=== PATIENT | female | born 1940 | race Caucasian/White ===

== ENCOUNTER 2019-12-04 07:35 | Outpatient (CLI) | payer MEDICARE, OTHER ==
[2019-12-04 14:29] LABS: #Basophils 0.1 thou/uL (0.0-0.2); #Eosinphils 0.1 thou/uL (0.0-0.7); #Lymphocytes 2.7 thou/uL (1.20-3.40); #Monocytes 0.5 thou/uL (0.11-0.59); #Neutrophils 4.2 thou/uL (1.40-6.50); %Eosinophils 1.2 % (0.0-10.0); %Lymphocytes 35.2 % (21.0-51.0); %Monocytes 7.1 % (0.0-10.0); %Neutrophils 55.5 % (42.0-75.0); Hemoglobin 13.7 g/dL (12.0-16.0); Mean Corpuscular HGB CONC 32.4 g/dL (32.0-36.0); Mean Corpuscular Hemoglobin 28.6 pg (27.0-31.0); Mean Corpuscular Volume 88.4 fL (78.0-98.0); Mean Platelet Volume 9.1 fL (7.4-10.4); Platelet Count 203 thou/uL (130-400); White Blood Cell (WBC) Count 7.5 thou/uL (4.8-10.8)
[2019-12-04 14:46] LABS: ALT (SGPT) 17 U/L (8-55); AST (SGOT) 22 U/L (5-34); Albumin 4.6 g/dL (3.4-4.8); Alkaline Phosphatase 83 U/L (40-110); Anion Gap 17 mmol/L (10-20); BUN (Urea Nitrogen) 17 mg/dL (9.8-20.1); Bilirubin, Direct 0.2 mg/dL (0.1-0.3); Bilirubin, Total 0.5 mg/dL (0.2-1.2); Calc. Creatinine Clearance 0 mL/min (70-130); Calcium 9.5 mg/dL (7.8-10.44); Carbon Dioxide 25 mmol/L (23-31); Chloride 104 mmol/L (98-107); Estimated GFR-MDRD 55; Globulin 3.2 g/dL (2.4-3.5); Glucose 112 mg/dL (83-110); Potassium 4.7 mmol/L (3.5-5.1); Protein, Total 7.8 g/dL (6.0-8.3); Sodium 141 mmol/L (136-145)
[2019-12-05 13:02] LABS: SARS-CoV-2 MS2 Positive; SARS-CoV-2 N Gene Negative; SARS-CoV-2 S Gene Negative; SARS-CoV-2 by NAA Not Detected (NotDetected); SARS-CoV-2 orf1ab Negative
== END 2019-12-04 07:36 | disposition home or self-care (01) ==
LOC: LABBT 07:35
PROVIDERS: ATTEND Surgery
DX: Z01.818 Encounter for other preprocedural examination (principal); Z20.828 Contact with and (suspected) exposure to other viral communicable diseases; Z45.1 Encounter for adjustment and management of infusion pump; M96.1 Postlaminectomy syndrome, not elsewhere classified
CPT/HCPCS: 80053; 80076; 85025; U0003; 87635; 93005; 93010

== ENCOUNTER 2019-12-07 10:10 | Day surgery (SDC) | payer MEDICARE ==
[2019-12-05 13:33] VITALS: BMI 37.7
[2019-12-07] MEDS ORDERED: Ondansetron PF 4 MG/2 ML Vial ONE (11:41)
[2019-12-07] MEDS ORDERED: Dexamethasone 20 MG/5 ML VIAL ONE (11:41)
[2019-12-07] MEDS ORDERED: Ketamine 50 MG/ML (10ML VIAL) ONE (12:03)
[2019-12-07] MEDS ORDERED: Midazolam HCl 2 mg/2 ml Vial ONE (12:03)
[2019-12-07] MEDS ORDERED: Propofol 1,000 MG/100 ML VIAL IV ONE (12:03)
[2019-12-07] MEDS ORDERED: Fentanyl 100 MCG/2 ML VIAL ONE (12:03)
[2019-12-07] MEDS ORDERED: Bupivacaine PF 0.5% 30 ML VIAL ONE (12:18)
[2019-12-07] MEDS ORDERED: Lidocaine 1% w/Epinephrine 1:100K 20 ML VIAL ONE (12:18)
--- NOTE | 2019-12-08 07:18 | HP ---
CHIEF COMPLAINT: 1. Chronic postlaminectomy pain. 2. Sacroiliitis. 3. Spinal stenosis. She has had intrathecal pain pump for many years and had been successful. Battery life is now . She needs removal and replacement. PAST MEDICAL HISTORY: Significant for: 1. Pain. 2. Arthritis. 3. Sinus headaches. PAST SURGICAL HISTORY: 1. She has had 4 knee replacements. 2. She has had multiple back surgeries. 3. Ankle surgeries. 4. Her last removal of pain pump was in 2013. 5. She had a hip replacement in 2017. MEDICATIONS: Include: 1. Vitamin D. 2. Lorazepam. 3. Aspirin. 4. Protonix. 5. Potassium. 6. Morphine. 7. Gabapentin. 8. [place]. ALLERGIES: SHE HAS AN ALLERGY TO PENICILLIN. SOCIAL HISTORY: She is . No tobacco or alcohol. PHYSICAL EXAMINATION: GENERAL: Well-developed, well-nourished female, looks comfortable, awake and alert. HEENT: Unremarkable. LUNGS: Clear. HEART: Regular rate and rhythm. ABDOMEN: She has an existing pump on the left lower quadrant of the abdomen. It is protruding. Lower portion has migrated to the superior portion, so there is some angulation of the device. It is nontender. ASSESSMENT: Depleted pain pump. PLAN: Removal and replacement of intrathecal pain pump. Job ID: [id number]
--- NOTE | 2019-12-09 10:48 | OP ---
DATE OF PROCEDURE: 12/07/2019 PREOPERATIVE DIAGNOSIS: Depleted intrathecal pain pump. PROCEDURE PERFORMED: Removal and replacement of implantable programable intrathecal pain pump. INDICATIONS: This is a 79-year-old female, who has had this pain pump for about 14 years for post laminectomy pain. It has not been working recently and the battery life has depleted. FINDINGS: The pump was actually disconnected from the tubing. It had . The pin had pulled out of the tubing and the tubing was buried within the subcutaneous tissue. There was a bunch of jelly around the pump, which was possibly medication that was in the space. There was 25 mL of the Duramorph within the old pump, which was placed into the new pump. DESCRIPTION OF PROCEDURE: After informed consent was obtained, the patient was taken to the operating room and given total IV anesthesia, placed in supine position. Her abdomen was prepped and draped in usual fashion. Local anesthesia with 0.5% Marcaine infiltrated subcutaneously and deep. Transverse incision performed to the old scar. Subcu divided sharply down to the capsule, which included a sock, which encompassed the old pump. This sock was then opened and the sutures removed. There was all this jelly around the pump and when I flipped the pump up, it was disconnected. The tubing end was covered with the capsule. I could see it through a translucent amount of the capsule, opened the capsule carefully with the electrocautery and was able to dissect out the tubing. The tubing connector had split in 2, one half of it was still attached to the pump, the other half was buried in the subcu. The other thing was the pump was oriented upside down, so I went ahead and dissected out the tubing. We attempted to aspirate, could not get any CSF through this tubing, but what we did was we cut the existing tubing, which was the old style of tubing and put a new connector on it. Then, the new pump was primed by removing its fluid and then the old pump was aspirated, a little over 25 mL of drug was removed from the old pump. This was then placed in the new pump. The new pump was then connected to the new connector and then I was able to aspirate through the aspiration port. We got about 1.5 mL of CSF through that port, which we discarded. Two 2-0 Prolene sutures were placed in the superior aspect of the pocket. The pump was inserted. It was tied down with these sutures in its pocket, any of the tubing was posterior. Then, hemostasis was assured. The capsule was closed with interrupted 2-0 Vicryl suture. The skin closed with a running subcuticular 4-0 Rapide. Steri-Strips applied. Sterile bandage applied. The patient tolerated the procedure well, transferred to Recovery in good condition. Sponge and needle count verified correct x2. Job ID: [id number]
--- NOTE | 2019-12-09 16:09 | EKG ---
Test Reason : PREOP Blood Pressure : / mmHG Vent. Rate : 081 BPM Atrial Rate : 081 BPM P-R Int : 144 ms QRS Dur : 090 ms QT Int : 382 ms P-R-T Axes : 030 012 021 degrees QTc Int : 443 ms Normal sinus rhythm Normal ECG No previous ECGs available Confirmed by Marci BAI ([id number]) on 12/09/2019 4:09:04 PM Referred By: SANDY Confirmed By:Marci BAI
== END 2019-12-07 15:15 | disposition home or self-care (01) ==
LOC: SDC 10:10
PROVIDERS: ATTEND Surgery
PROC: 0JPT0VZ Removal of Infusion Pump from Trunk Subcutaneous Tissue and Fascia, Open Approach (ICD-10-PCS; principal; 2019-12-07)
PROC: 0JH80VZ Insertion of Infusion Pump into Abdomen Subcutaneous Tissue and Fascia, Open Approach (ICD-10-PCS; 2019-12-07)
DX: Z45.1 Encounter for adjustment and management of infusion pump (principal); M96.1 Postlaminectomy syndrome, not elsewhere classified; M46.1 Sacroiliitis, not elsewhere classified; M48.00 Spinal stenosis, site unspecified; M19.90 Unspecified osteoarthritis, unspecified site; I10 Essential (primary) hypertension; G89.29 Other chronic pain; M54.9 Dorsalgia, unspecified; F41.9 Anxiety disorder, unspecified; Z79.82 Long term (current) use of aspirin; Z79.899 Other long term (current) drug therapy; Z88.0 Allergy status to penicillin
CPT/HCPCS: 62362; 93005; C1772; 93010; J0690; J1100; J2250; J2405; J2704; J3010; S0020

== ENCOUNTER 2019-12-09 01:10 | Inpatient (IN) | payer MEDICARE, OTHER ==
[2019-12-09] MEDS ORDERED: Metoclopramide HCl 10 MG/2 ML VIAL ONE ×2 (01:19→03:06)
[2019-12-09 02:10] LABS: Bacteria/HPF None Seen HPF (None Seen); Bilirubin Negative (Negative); Blood, Urine 2+ (Negative); Clarity Clear (Clear); Glucose, Urine (Dipstick) Normal (Negative); Ketone, Urine 40 mg/dL (Negative); Leukocyte Negative Leu/uL (Negative); Nitrite Negative (Negative); Protein, Urine (Dipstick) 30 mg/dL (Neg-Trace); RBC/HPF 0-3 HPF (0-3); Specific Gravity, Urine 1.028 (1.002-1.036); Squamous Epithelial 0-3 HPF (0-3); Urobilinogen Normal mg/dL (Less than 2); WBC/HPF 0-3 HPF (0-3); pH, Urine 5.5 (5.0-9.0)
[2019-12-09 02:22] LABS: #Lymphocytes 1.8 thou/uL (1.20-3.40); #Monocytes 0.8 thou/uL (0.11-0.59); #Neutrophils 6.3 thou/uL (1.40-6.50); %Basophils 0.3 % (0.0-1.0); %Eosinophils 0.2 % (0.0-10.0); %Lymphocytes 20.7 % (21.0-51.0); %Monocytes 8.5 % (0.0-10.0); %Neutrophils 70.3 % (42.0-75.0); Hemoglobin 13.3 g/dL (12.0-16.0); Mean Corpuscular HGB CONC 33.7 g/dL (32.0-36.0); Mean Corpuscular Hemoglobin 28.7 pg (27.0-31.0); Mean Corpuscular Volume 85.1 fL (78.0-98.0); Platelet Count 215 thou/uL (130-400); RBC Distribution Width 12.9 % (11.5-14.5); Red Blood Cell (RBC) Count 4.63 mill/uL (4.20-5.40); White Blood Cell (WBC) Count 8.9 thou/uL (4.8-10.8)
[2019-12-09 02:41] LABS: ALT (SGPT) 16 U/L (8-55); AST (SGOT) 30 U/L (5-34); Albumin 4.4 g/dL (3.4-4.8); Alkaline Phosphatase 73 U/L (40-110); Anion Gap 18 mmol/L (10-20); BUN (Urea Nitrogen) 17 mg/dL (9.8-20.1); Bilirubin, Total 0.7 mg/dL (0.2-1.2); Calc. Creatinine Clearance 0 mL/min (70-130); Calcium 9.3 mg/dL (7.8-10.44); Carbon Dioxide 22 mmol/L (23-31); Chloride 101 mmol/L (98-107); Estimated GFR-MDRD 54; Globulin 3.3 g/dL (2.4-3.5); Glucose 169 mg/dL (83-110); Potassium 3.2 mmol/L (3.5-5.1); Protein, Total 7.7 g/dL (6.0-8.3); Sodium 138 mmol/L (136-145)
[2019-12-09 03:08] LABS: CKMB 11.4 ng/mL (0-6.6)
[2019-12-09] MEDS ORDERED: Aspirin 300 MG Suppository ONE (03:12)
[2019-12-09] MEDS ORDERED: hydrALAZINE 20 MG/ML VIAL SLOW IVP PRN (05:35)
[2019-12-09 05:52] LABS: Lactic Acid 2.7 mmol/L (0.5-2.2)
[2019-12-09 06:03] LABS: Troponin I 0.695 ng/mL (< 0.028)
[2019-12-09] MEDS ORDERED: hydrALAZINE 20 MG/ML VIAL ONE (06:11)
[2019-12-09] MEDS ORDERED: Lorazepam 2 MG/ML VIAL SLOW IVP SCH (06:20)
[2019-12-09] MEDS ORDERED: Lorazepam 2 MG/ML VIAL ONE (06:21)
[2019-12-09] MEDS: hydrALAZINE 20 MG/ML VIAL SLOW IVP PRN ×3 (06:21→17:05)
[2019-12-09] MEDS: Sodium Chloride 0.9% 1,000 ML IV SCH ×2 (06:38→17:07)
[2019-12-09] MEDS ORDERED: Promethazine HCl 25 MG/ML VIAL ONE (06:45)
--- NOTE | 2019-12-09 07:50 | HP ---
REASON FOR ADMISSION: Confusion. HISTORY OF PRESENT ILLNESS: This is a 79-year-old female patient, who recently had her pain pump removed and a new one inserted since the old one was depleted. She is known to have post LAMI syndrome. The procedure was done a couple of days ago by Dr. Arnold Meade. Patient presents to the ER tonight with change in mental status. There was some mention of fever at home, but patient here is afebrile. Patient was vomiting in the emergency room and her blood work did reveal elevated troponin and CK-MB. She was given a dose of rectal aspirin and started on IV fluids. She did undergo CT of the abdomen and pelvis that did not show any abnormality as per the ER physician. I attempted to call her contact information, but I did not get any response. I did leave a voice message. In the ER when I saw the patient, she appears to be confused. She did not appear in distress. PAST MEDICAL HISTORY: As per records: 1. Post 4 knee replacements. 2. Multiple back surgeries. 3. Ankle surgery. 4. Removal of the pain pump twice in 2013 and recently a couple of days ago. 5. Hip replacement in 2017. 6. Arthritis. 7. Sinus headache. 8. Sacroiliitis. 9. Spinal stenosis. 10. Chronic postlaminectomy pain. ALLERGIES: TO PENICILLIN. SOCIAL HISTORY: As per records, does not smoke and does not drink alcohol. REVIEW OF SYSTEMS: Unable to obtain due to her confusion. PHYSICAL EXAMINATION: GENERAL: She is awake, but confused. VITAL SIGNS: Her blood pressure is 170/95, heart rate of 85, temperature is 99 degrees, and saturating 99% on room air. HEENT: Head is nontraumatic and normocephalic. Pupils equal, reactive. Extraocular movements are intact. Nonicteric sclerae. Well-injected conjunctivae. Oral mucosa normal. Nasal mucosa normal. NECK: Supple. No adenopathy. No murmur. Thyroid is not palpable. Trachea midline. No supraclavicular adenopathy. HEART: S1, S2 regular. No murmur. No gallop. No friction rubs. No displacement of the PMI. LUNGS: Clear to auscultation. Poor inspiratory effort. Bowel sounds are positive. ABDOMEN: Soft. She does have 1+ pitting edema in bilateral lower extremities. NEUROLOGIC: She is moving all of her four extremities. Unable to fully assess her neurologically. She is confused. LABORATORY DATA: Blood work shows WBC of 8.9, hemoglobin 13.3, and platelets of 215. Sodium 138, potassium of 3.2, bicarb 22, and creatinine 0.99. CK-MB 11.4 and troponin 0.251. Urinalysis does not show any evidence of infection. Does show ketones. EKG shows normal sinus rhythm with PVC. No ST-segment or T-wave changes. ASSESSMENT AND PLAN: This is a 79-year-old female patient presenting with confusion, unknown baseline, but appears to be agitated. Recently, she had a pain pump replaced, so this could be related to that. Also, she ruled in by cardiac enzymes. Patient will be admitted to telemetry and will continue cycling cardiac enzymes. We will provide her with blood pressure control. We will ask Cardiology to see her. She did receive a dose of aspirin in the emergency room, so we will continue with that. Renal system, electrolytes. Patient will be hydrated and we will recheck her electrolytes, replace appropriately. In regard to her pain pump, I did place a consult for Anesthesia to see if they can help. Otherwise, we will leave a message for the day team to possibly contact the surgeon, who inserted the pain pump. I am unable to determine her code status since her lithography contact worker did not come back yet. We will have her full code. Job ID: [id number]
[2019-12-09] MEDS ORDERED: Ondansetron PF 4 MG/2 ML Vial IVP PRN ×2 (08:24→18:34)
[2019-12-09] MEDS ORDERED: Ondansetron ODT 4 MG TAB PO PRN (08:24)
[2019-12-09] MEDS ORDERED: Enoxaparin Sodium 40 MG/0.4 ML SYRINGE SC SCH (09:00)
[2019-12-09] MEDS ORDERED: Haloperidol Lactate 5 MG/ML VIAL IM PRN (09:03)
--- NOTE | 2019-12-09 09:11 | PDOC.BPN ---
- Brief Progress Note Encounter Date: 12/09/19 Encounter Time: 09:00 Inherited the patient this morning. On encounter, agitated, mumbles, dark vomitus on shirt and in mouth. #hypertensive emergency #demand ischemia BP on encounter 160s/90s, slightly below goal pending cardiology evaluation hydralazine and labetalol PRN trend trop #low grade fever -WBC wnl, UA -ve, CXR no acute pulmonry process; blood Cx pending -considering fever, may be aspiration pneumonitis -Pain pump incision site c/d/i -procalcitonin -continue to follow #UGIB -started pantoprazole; H&H q8h -if continues to be confused and vomits, may require intubation assuming remains full code (will attempt to reach family); defer to PCCM #agitation #confusion hypertensive encephalopathy vs infectious etiology vs medication induced (opioids, lorazepam) vs ACS pending CT head report on repeat encounter (10:30am), awake, alert, speaks with son (improved) started low dose haldol; Full code pending discussion with family
[2019-12-09] MEDS ORDERED: Potassium Chloride 40 MEQ in Premix Bag 1 BAG IVPB SCH (09:15)
[2019-12-09] MEDS ORDERED: Electrolyte Replacement Protoc 1 EACH EACH FS SCH (09:15)
[2019-12-09] MEDS ORDERED: Pantoprazole 40 MG VIAL IVP SCH (09:15)
[2019-12-09 09:34] VITALS: BMI 38.4
--- NOTE | 2019-12-09 09:37 | RAD ---
PORTABLE CHEST: HISTORY: Fever. FINDINGS: Cardiomegaly and mild vascular engorgement. No consolidation or significant effusion apparent. POS: AGW
[2019-12-09] MEDS: Potassium Chloride 20 MEQ in Premix Bag 1 BAG IVPB SCH ×2 (10:18→10:20)
[2019-12-09 10:49] LABS: Anion Gap 20 mmol/L (10-20); BUN (Urea Nitrogen) 11 mg/dL (9.8-20.1); Calc. Creatinine Clearance 83 mL/min (70-130); Calcium 8.9 mg/dL (7.8-10.44); Carbon Dioxide 20 mmol/L (23-31); Chloride 100 mmol/L (98-107); Estimated GFR-MDRD 62; Glucose 136 mg/dL (83-110); Sodium 137 mmol/L (136-145)
[2019-12-09 10:51] LABS: Potassium 2.8 mmol/L (3.5-5.1)
--- NOTE | 2019-12-09 11:11 | CT ---
PRELIMINARY REPORT/[facility]/AFTER HOURS PROCEDURE EXAM: CT Head Without Intravenous Contrast. CLINICAL HISTORY: AMS TECHNIQUE: Axial computed tomography images of the head/brain without intravenous contrast. COMPARISON: None provided. FINDINGS: BRAIN: No acute intraparenchymal hemorrhage. No CT evidence for acute territorial infarct. No midline shift or extra-axial collection. Confluent bilateral subcortical and periventricular hypoattenuation with areas of sparing noted within the centrum semiovale. VENTRICLES: No hydrocephalus. ORBITS: Status post bilateral cataract surgery. SINUSES AND MASTOIDS: Mucosal thickening of the posterior ethmoid air cells. The mastoid air cells are clear. SOFT TISSUES: No significant facial or scalp soft tissue swelling evident. No radiopaque foreign body is seen. BONES: No acute skull fracture. IMPRESSION: Confluent bilateral subcortical and periventricular hypoattenuation with areas of sparing noted withi n the centrum semiovale. While this may reflect chronic microvascular ischemic changes, multifocal a reas of vasogenic edema should be considered. Consider further characterization with a contrast-enha nced MRI of the brain. ELECTRONICALLY SIGNED BY: Keven Mcdaniels MD Dec 09, 2019 3:02:59 AM CDT This report is intended for review by the ordering physician only, in accordance of law. If you recei ve this report in error, please call [facility] at [phone]. FINAL REPORT CT HEAD WITHOUT CONTRAST: Diffuse periventricular white matter hypodensity is noted. The ventricles have normal size and positi on. Findings most likely represent moderately severe chronic ischemic white matter change, as noted o n the preliminary report. Elective follow-up MRI is suggested for further characterization, as noted on the preliminary report. POS: ROGERIO
[2019-12-09 11:16] LABS: Troponin I 1.027 ng/mL (< 0.028)
--- NOTE | 2019-12-09 11:19 | CT ---
PRELIMINARY REPORT/[facility]/AFTER HOURS PROCEDURE EXAM: CT Abdomen and Pelvis with Intravenous Contrast CLINICAL HISTORY: HOME - BODY TRIMMER UPHOLSTERER STATES PATIENT HAS FEVER OF 102, VOMITING, AND AMS SINCE LAST NIGHT RECENTLY DISCHA RGED (TUESDAY) FOR SURGERY TO REPLACE MORPHINE PUMP TECHNIQUE: Axial computed tomography images of the abdomen and pelvis with intravenous contrast. CONTRAST: With; ISOVUE 370,100mL COMPARISON: None provided. FINDINGS: LUNG BASES: No basilar airspace consolidation or pleural effusion. LIVER: Hepatic steatosis without a focal hepatic lesion identified. GALLBLADDER AND BILE DUCTS: Unremarkable. No calcified stone. No ductal dilation. PANCREAS: Unremarkable. SPLEEN: Unremarkable. ADRENAL GLANDS: Unremarkable. KIDNEYS, URETERS, AND BLADDER: Unremarkable. No hydronephrosis or nephrolithiasis. No ureteral or bladder calculi. STOMACH AND BOWEL: Hiatal hernia. No obstruction. No wall thickening. Sigmoid diverticulosis without diverticulitis. APPENDIX: No CT evidence for appendicitis. PERITONEUM: No free fluid. No free air. LYMPH NODES: No lymphadenopathy. REPRODUCTIVE: The uterus is poorly visualized. VASCULATURE: No aortic aneurysm. BONES/SOFT TISSUES: No acute osseous abnormality. No suspicious lytic or blastic osseous lesion. Postsurgical features of the lumbosacral region without acute hardware complication. Multilevel degenerative disc and face t disease of the lumbar spine. Multilevel spondylolisthesis is present above the lumbosacral constru ct. Status post left total hip arthroplasty without acute hardware complication. A morphine pump is seen within the soft tissues of the left anterior abdominal wall with scattered foci of subcutaneous emphysema present. An intact catheter is seen extending from the device through the soft tissues of the left flank and into the spinal canal. The catheter is intact. IMPRESSION: 1. Status post exchange of the morphine pump within the soft tissues of the left anterior abdominal wall without expected postsurgical subcutaneous emphysema about the reservoir. No focal fluid collec tion is identified. Additionally, no acute intra-abdominal or intrapelvic findings. 2. Additional chronic findings as described above. ELECTRONICALLY SIGNED BY: Keven Mcdaniels MD Dec 09, 2019 3:09:21 AM CDT This report is intended for review by the ordering physician only, in accordance of law. If you recei ve this report in error, please call [facility] at [phone]. FINAL REPORT CT ABDOMEN AND PELVIS WITH IV CONTRAST: No evidence of acute process. I am in agreement with the preliminary report. POS: AGW
[2019-12-09 12:46] LABS: SARS-CoV-2 MS2 Positive; SARS-CoV-2 N Gene Negative; SARS-CoV-2 S Gene Negative; SARS-CoV-2 by NAA Not Detected (NotDetected); SARS-CoV-2 orf1ab Negative
[2019-12-09] MEDS: Labetalol HCl 100 MG/20 ML VIAL SLOW IVP PRN ×2 (14:13→23:40)
[2019-12-09] MEDS ORDERED: Iopamidol-370 76% 500 ML 1 ML ONE (14:50)
[2019-12-09 15:40] LABS: Potassium 3.1 mmol/L (3.5-5.1)
[2019-12-09] MEDS: Potassium Chloride 40 MEQ in Sodium Chloride 0.9% 250 ML 250 ML IVPB SCH ×2 (17:06→21:43)
[2019-12-09] MEDS: Pantoprazole 40 MG VIAL IVP SCH (21:43)
[2019-12-10 04:11] LABS: #Lymphocytes 1.7 thou/uL (1.20-3.40); #Monocytes 1.2 thou/uL (0.11-0.59); #Neutrophils 8.3 thou/uL (1.40-6.50); %Basophils 0.2 % (0.0-1.0); %Eosinophils 0.2 % (0.0-10.0); %Monocytes 10.4 % (0.0-10.0); %Neutrophils 74.1 % (42.0-75.0); Hemoglobin 13.9 g/dL (12.0-16.0); Mean Corpuscular HGB CONC 33.2 g/dL (32.0-36.0); Mean Corpuscular Hemoglobin 28.2 pg (27.0-31.0); Mean Corpuscular Volume 84.9 fL (78.0-98.0); Mean Platelet Volume 9.4 fL (7.4-10.4); Platelet Count 228 thou/uL (130-400); RBC Distribution Width 13.3 % (11.5-14.5); Red Blood Cell (RBC) Count 4.93 mill/uL (4.20-5.40); White Blood Cell (WBC) Count 11.2 thou/uL (4.8-10.8)
[2019-12-10 04:31] LABS: Anion Gap 17 mmol/L (10-20); BUN (Urea Nitrogen) 8 mg/dL (9.8-20.1); Calc. Creatinine Clearance 90 mL/min (70-130); Carbon Dioxide 20 mmol/L (23-31); Chloride 106 mmol/L (98-107); Estimated GFR-MDRD 68; Glucose 129 mg/dL (83-110); Potassium 3.4 mmol/L (3.5-5.1); Sodium 140 mmol/L (136-145)
[2019-12-10] MEDS ORDERED: Potassium Chloride 20 MEQ TAB PO SCH (05:00)
[2019-12-10] MEDS ORDERED: hydrALAZINE 20 MG/ML VIAL SLOW IVP PRN (07:42)
--- NOTE | 2019-12-10 08:28 | PDOC.HOSPP ---
- Subjective Encounter Date: 12/10/19 Encounter Time: 07:00 Subjective: overnight, spiked low grade fever, grossly hypertensive, IV blew out so couldn't administer IV antiHTN. This morning, feeling well and has no complaints. Adamant about being discharged despite education. Called son and asked that he speaks with patient to avoid AMA - Objective Vital Signs & Weight: Vital Signs (12 hours) Temp Pulse BP 12/10/19 07:27 99.4 F 12/10/19 03:49 101.0 F H 12/09/19 23:40 96 193/97 H Weight Weight 224 lb Most Recent Monitor Data Heart Rate from ECG 97 NIBP 201/85 NIBP BP-Mean 123 Respiration from ECG 14 SpO2 97 I&O: 12/09/19 12/10/19 12/11/19 06:59 06:59 06:59 Intake Total 900 1350 Output Total 1450 1125 Balance -550 225 Result Diagrams: 12/10/19 03:09 12/10/19 03:09 Hospitalist ROS - Review of Systems Respiratory: denies: cough, shortness of breath, pleuritic pain Cardiovascular: denies: chest pain, palpitations, orthopnea Gastrointestinal: denies: nausea, vomiting, abdominal pain Genitourinary: denies: dysuria, frequency - Medication Medications: Active Medications Generic Name Dose Route Start Last Admin Trade Name Freq PRN Reason Stop Dose Admin Haloperidol Lactate 1 mg 12/09/19 09:03 12/09/19 10:17 Haldol IM 1 mg Q4H PRN Administration Agitation Labetalol HCl 10 mg 12/09/19 10:44 12/09/19 23:40 Normodyne SLOW IVP 10 mg Q4H PRN Administration SBP Greater Than 180 Pantoprazole Sodium 40 mg 12/09/19 21:00 12/09/19 21:43 Protonix IVP 40 mg Q12HR ELICIA Administration Sodium Chloride 10 ml 12/09/19 09:00 12/09/19 21:44 Flush - Normal Saline IVF 10 ml Q12HR ELICIA Administration - Exam General Appearance: NAD, awake alert General - other findings: morbidly obses Neck: no JVD Heart: RRR, no gallops, murmur present Heart - other findings: 2/6, pansystolic, most audible left 2nd intercostal Respiratory: no wheezes, no ronchi, normal chest expansion Respiratory - other findings: right lower field inspiratory rales Gastrointestinal: soft, non-tender, non-distended, normal bowel sounds Gastrointestinal - other findings: pain pump incision c/d/i Psychiatric: normal affect, normal behavior, oriented to person, oriented to place Hosp A/P - Plan #hypertensive emergency #demand ischemia IV blew overnight, no antiHTN administered continue hydralazine and labetalol PRN > 180/120 started chlorthalidone and amlodipine echo cardiology onobard #low grade fever #aspiration pneumonitis -WBC wnl -> elevated, neutrophilia, UA -ve, CXR no acute pulmonry process; blood Cx pending -considering fever, may be aspiration pneumonitis -Pain pump incision site c/d/i -procalcitonin low -RLF inspiratory rales -repeat CXR -if febrile again, start clindamycin considering penicillin allergy #UGIB -HgB stable -GI onboard; no intervention at this time -continue pantoprazole #agitation (resolved) #confusion (resolved) hypertensive encephalopathy vs infectious etiology vs medication induced (opioids, lorazepam) vs ACS continue low dose haldol PRN; Full code Dispo: transfer to telemetry when blood pressure better controlled Patient adamant about discharge. Called Jacky miller (son) and requested that he speaks with patient regarding staying. Per family, will have difficulty treating patient at home;
[2019-12-10] MEDS ORDERED: Aspirin 300 MG Suppository PR SCH (09:00)
[2019-12-10] MEDS: Aspirin 81 mg Enteric Coated Tablet PO SCH (10:17)
[2019-12-10] MEDS: Pantoprazole 40 MG VIAL IVP SCH (10:17)
[2019-12-10] MEDS: HYDROcodone/Acetaminophen 10/325 mg Tablet PO PRN ×2 (10:18→19:30)
[2019-12-10] MEDS: Amlodipine 5 MG TAB PO SCH (10:18)
[2019-12-10] MEDS: Chlorthalidone 25 MG TAB PO SCH (10:19)
--- NOTE | 2019-12-10 10:55 | RAD ---
EXAM: Single view of the chest HISTORY: Fever and aspiration COMPARISON: 12/09/2019 FINDINGS: Single view of the chest shows an enlarged but stable cardiomediastinal silhouette. Athero sclerotic calcifications are seen in the aorta. There is no evidence of consolidation, mass, or pleural effusion. Degenerative changes are seen in the spine. IMPRESSION: Stable cardiomegaly
[2019-12-10] MEDS ORDERED: Losartan 25 MG TAB PO SCH (11:15)
--- NOTE | 2019-12-10 12:01 | PRG ---
DATE OF SERVICE: 12/10/2019 SUBJECTIVE: Ms. Ta is much more alert and awake today. She initially wanted to go home against medical advice, but there is a family member here now who is persuaded her to stay. She is not having chest pain or shortness of breath. OBJECTIVE: VITAL SIGNS: Her blood pressure is elevated at 180/87, pulse is in the 80s. LUNGS: Clear. CARDIAC: Normal S1 and normal S2. ABDOMEN: Soft and nontender. EXTREMITIES: There is no edema. ASSESSMENT: 1. Hypertension. 2. Ncn-HY-dalimskfu myocardial infarction, likely demand ischemia. 3. Hypokalemia, improved. 4. Peripheral edema. PLAN: 1. Add olmesartan. 2. Back on amlodipine. 3. Echocardiogram has been done. I will review that. 4. Will likely need beta-ajit at some point. 5. Mental status is improved dramatically from yesterday. In addition, there are family members here now. They are helping her to settle down some and agree to stay in the hospital. Job ID: [id number]
--- NOTE | 2019-12-10 17:17 | CON ---
DATE OF CONSULTATION: REASON FOR CONSULTATION: Coffee-grounds emesis x2. HISTORY OF PRESENT ILLNESS: Ms. Ta is a 79-year-old female who was admitted with altered mental status. She cannot really add to the history comes from review of the chart and talking with the patient's nurse. Apparently, she had the intrathecal pain pump changed last week on Tuesday, the . Apparently, the pump had not been working. There was some concern that there was some extravasation of medications from the pump as apparently the tubing was not connected and there was a gel-like material in the tissue around it. In any event, there was no concern of infection apparently at that time. She presented again here to the hospital early this morning with confusion and possible fever at home. The patient was hypertensive and also having some retching in the emergency room. Apparently, she has not really brought anything up. She had mildly elevated troponin. She was started on IV fluids. She had a CAT scan of her head in the emergency room at about 1:30 this morning that was notable for diffuse periventricular white matter, felt to be chronic ischemic changes. No acute events. Then, she had a CAT scan of the abdomen and pelvis, multilevel surgeries and a pain pump revision noted, hip arthroplasty, scattered foci of subcutaneous emphysema present, left anterior abdominal wall catheter in place in the spinal canal. She got a dose of Zofran at one point in time and again started on a PPI. Nurses note this has been small amounts of coffee-grounds. The patient cannot add any history. PAST MEDICAL HISTORY: Four knee replacements; multiple back surgeries; ankle surgery; recent revision of her pain pump, which goes into her spine; hip replacement; arthritis; chronic headaches; sacroiliitis; spinal stenosis; chronic post-laminectomy pain. SOCIAL HISTORY: She does not smoke or drink. REVIEW OF SYSTEMS: Unable to be obtained. The nurse reports she has had no fever here. MEDICATIONS: At home, 1. Potassium. 2. Protonix. 3. Meclizine. 4. Ativan. 5. Hydrochlorothiazide. 6. Hydrocodone. 7. Aspirin. 8. Amlodipine in her pain pump. Medicines here, 1. 75 mL an hour normal saline. 2. Potassium. 3. Protonix. 4. Labetalol. 5. Hydralazine. 6. Haldol. 7. Aspirin. PHYSICAL EXAMINATION: VITAL SIGNS: Temperature is 100.5 in the emergency room and 97 here; blood pressure 184/128, 184/98, 178/76, and 180/90. In the emergency room last night, she was 192/127 at one point in time and 163/64 at another point in time. GENERAL: She is flushed. She is alert and confused. NECK: She has no nuchal rigidity. LUNGS: Clear. HEART: Regular rate and rhythm without clicks or murmurs. ABDOMEN: Nontender. The pain pump site is a little bit fluctuant. There is no pus or anything coming from that. EXTREMITIES: Without edema. LABORATORY DATA: Hemoglobin is 14; white count 8.9 today, 7.5 on 12/03; platelet count is normal at 215. Sodium 137; potassium 2.8, up to at 3.1; BUN and creatinine are 11 and 0.8; glucose 162. Troponins are 0.695 and 1.027. Procalcitonin 0.03. Liver function tests were normal. No cultures were obtained it appears anyway. ASSESSMENT: 1. Coffee-grounds emesis, self-limited, secondary probably to emetic trauma. With regard to this, I will put her on a proton pump inhibitor. She has been on a proton pump inhibitor at home and likely does not have an ulcer. Her nausea needs to be controlled with Zofran p.r.n. I have reinstituted this. I would leave Phenergan out as it can lead to altered mental status. If she continues to vomit, a nasogastric tube needs to be placed. 2. With regard to her altered mental status, differential diagnosis includes polypharmacy, infection related to meningitis from her pain pump, and hypertensive urgency. RECOMMENDATIONS: Consider infectious workup for possible meningitis. Control blood pressure. PPI therapy. Job ID: [id number]
--- NOTE | 2019-12-10 18:19 | PRG ---
DATE OF SERVICE: 12/10/2019 SUBJECTIVE: Ms. Ta feels better, since the bedtime, she is alert and oriented. She is not nauseated, has had no vomiting, no melena. OBJECTIVE: VITAL SIGNS: Temperature is 98, pulse is 96, blood pressure is 181/87. ABDOMEN: Soft and nontender. LABORATORY DATA: White count 11, hemoglobin 13.9, platelet count 228. Sodium 140, potassium 3.4, BUN and creatinine are 8 and 0.8. ASSESSMENT: 1. Altered mental status, resolved, likely related to medications and polypharmacy effect. She had a pump change out of her right flank with morphine just last Tuesday. 2. Coffee-grounds emesis. This occurred when she had altered mental status, very high blood pressure, and headache. She was having retching and had an episode of coffee-ground emesis. This has resolved. Her hemoglobin is stable. There are no signs of acute hemorrhage. This is likely emetogenic injury. I suspect her emesis was related to nausea with her mental status changes and medications. RECOMMENDATIONS: Continue PPI, can change to p.o. after a couple of days. Advance diet as tolerated. We will sign off. If I can be of any further assistance in the patient's care, please do not hesitate to contact me. Job ID: [id number]
--- NOTE | 2019-12-10 19:14 | CON ---
DATE OF CONSULTATION: 12/09/2019 REASON FOR ADMISSION: Confusion, disorientation, found to have increased troponin levels. HISTORY OF PRESENT ILLNESS: Ms. Ta is a 79-year-old woman who was admitted to the hospital with confusion and disorientation. No chest pain or pressure. She is disoriented. As mentioned, she does not report to me any pain or pressure currently, but found to have a high troponin level. She is agitated earlier today. She seems calmer, but disoriented. No previous cardiac history that we know of. PAST HISTORY: 1. Knee replacement. 2. Back surgery. 3. Ankle surgery. 4. Pain pump. ALLERGIES: PENICILLIN. SOCIAL HISTORY: No smoking. Does not drink alcohol. REVIEW OF SYSTEMS: Not obtainable due to confusion. PHYSICAL EXAMINATION: GENERAL: This is a confused 79-year-old woman. VITAL SIGNS: Blood pressure 170/80 and pulse 60. LUNGS: Clear. CARDIAC: Normal S1 and normal S2. ABDOMEN: Soft and nontender. EXTREMITIES: Warm and dry. No clubbing. No cyanosis. There is no edema. The patient is obese. Her BMI is 38. ASSESSMENT: 1. Confusion and disorientation. 2. Increased troponin, probably type 2 demand ischemia. PLAN: 1. Treat blood pressure. 2. Aspirin. 3. Receiving potassium. 4. Echocardiogram has been ordered. Job ID: [id number]
[2019-12-10] MEDS: Gabapentin 100 MG CAP PO PRN (19:31)
[2019-12-10] MEDS ORDERED: Electrolyte Replacement Protocol FS PRN (20:15)
[2019-12-10] MEDS ORDERED: Electrolyte Replacement Protoc 1 EACH EACH FS SCH (20:15)
[2019-12-10 21:05] LABS: Potassium 3.8 mmol/L (3.5-5.1)
--- NOTE | 2019-12-10 22:28 | CON ---
DATE OF CONSULTATION: REASON FOR CONSULTATION: Increased troponin. HISTORY OF PRESENT ILLNESS: Ms. Therese Ta is a 79-year-old woman, admitted to the hospital with confusion, disorientation, and altered mental status. As part of the evaluation, she had a troponin level, which was drawn, which was abnormal. When I saw her here, she was confused and disoriented. Unable to give any really other information. PAST MEDICAL HISTORY: Past knee replacement, back surgery, ankle surgery, history of a pain pump in the past, hip replacement in 2017. SOCIAL HISTORY: No alcohol or tobacco. REVIEW OF SYSTEMS: Unobtainable due to confusion. PHYSICAL EXAMINATION: GENERAL: Yesterday, she was confused and disoriented, unable to give any really other information. VITAL SIGNS: Blood pressure was high 180 to 190 systolic, pulse in the 90s. LUNGS: No wheezing, rales, or rhonchi. Distant due to obesity. CARDIAC: No murmur, rub, or gallops. ABDOMEN: Obese, nontender. EXTREMITIES: No clubbing or cyanosis. Mild edema. LABORATORY DATA: Her BMI was 38.4. Her troponin peak was 1.027. Potassium was 2.8, but repleted up to 3.4. EKG showed sinus rhythm, no acute changes. ASSESSMENT: 1. Increased troponin probably demand ischemia. 2. Hypertension. 3. Recent change in her pain pump. 4. Confusion, disorientation. PLAN: Regulate blood pressure. Echocardiogram once stable. We will follow with you. Job ID: [id number]
[2019-12-11] MEDS: Pantoprazole 40 MG VIAL IVP SCH ×2 (02:00→08:57)
[2019-12-11] MEDS: Gabapentin 100 MG CAP PO PRN ×3 (03:21→20:02)
[2019-12-11] MEDS: HYDROcodone/Acetaminophen 10/325 mg Tablet PO PRN ×3 (03:21→20:01)
[2019-12-11 04:11] LABS: #Basophils 0.1 thou/uL (0.0-0.2); #Lymphocytes 2.5 thou/uL (1.20-3.40); #Monocytes 1.2 thou/uL (0.11-0.59); %Basophils 0.7 % (0.0-1.0); %Eosinophils 0.3 % (0.0-10.0); %Lymphocytes 22.9 % (21.0-51.0); %Monocytes 11.3 % (0.0-10.0); %Neutrophils 64.9 % (42.0-75.0); Hemoglobin 14.2 g/dL (12.0-16.0); Mean Corpuscular HGB CONC 34.4 g/dL (32.0-36.0); Mean Corpuscular Hemoglobin 29.3 pg (27.0-31.0); Mean Corpuscular Volume 85.3 fL (78.0-98.0); Mean Platelet Volume 8.8 fL (7.4-10.4); Platelet Count 237 thou/uL (130-400); RBC Distribution Width 13.2 % (11.5-14.5); Red Blood Cell (RBC) Count 4.86 mill/uL (4.20-5.40); White Blood Cell (WBC) Count 10.7 thou/uL (4.8-10.8)
[2019-12-11] MEDS ORDERED: Potassium Chloride 20 MEQ in Premix Bag 1 BAG IVPB SCH (04:30)
[2019-12-11 04:35] LABS: Anion Gap 19 mmol/L (10-20); BUN (Urea Nitrogen) 16 mg/dL (9.8-20.1); Calc. Creatinine Clearance 72 mL/min (70-130); Calcium 9.3 mg/dL (7.8-10.44); Carbon Dioxide 19 mmol/L (23-31); Chloride 102 mmol/L (98-107); Estimated GFR-MDRD 53; Glucose 114 mg/dL (83-110); Sodium 137 mmol/L (136-145)
[2019-12-11] MEDS ORDERED: Magnesium 2 GM/50 ML 2 GM in Premix Bag 1 BAG IVPB SCH (04:45)
[2019-12-11] MEDS: Aspirin 81 mg Enteric Coated Tablet PO SCH (08:56)
[2019-12-11] MEDS: Chlorthalidone 25 MG TAB PO SCH (08:56)
[2019-12-11] MEDS: Amlodipine 5 MG TAB PO SCH (08:56)
--- NOTE | 2019-12-11 09:46 | PDOC.HOSPP ---
- Subjective Encounter Date: 12/11/19 Encounter Time: 07:00 Subjective: overnight, ripped IV out again. This morning, feeling well and has no complaints. requests to leave home. Again educated regarding significant comorbidities and asked that she discusses with family. - Objective Vital Signs & Weight: Vital Signs (12 hours) Temp Pulse BP 12/11/19 08:56 98 181/87 H 12/11/19 07:32 99.4 F 12/11/19 03:26 99.9 F H Weight Weight 224 lb Most Recent Monitor Data Heart Rate from ECG 92 NIBP 152/78 NIBP BP-Mean 102 Respiration from ECG 22 SpO2 99 I&O: 12/10/19 12/11/19 12/12/19 06:59 06:59 06:59 Intake Total 900 1468 Output Total 1450 1125 Balance -550 343 Result Diagrams: 12/11/19 03:45 12/11/19 03:45 Hospitalist ROS - Review of Systems Constitutional: reports: chills. denies: sweats Respiratory: denies: cough, shortness of breath Cardiovascular: denies: chest pain, palpitations, orthopnea Gastrointestinal: denies: nausea, vomiting, abdominal pain, diarrhea Genitourinary: denies: dysuria, frequency, hematuria - Medication Medications: Active Medications Generic Name Dose Route Start Last Admin Trade Name Freq PRN Reason Stop Dose Admin Hydrocodone Bitart/Acetaminophen 1 tab 12/09/19 18:26 12/11/19 03:21 [place] 10/325 PO 1 tab TID PRN Administration Pain Amlodipine Besylate 5 mg 12/10/19 09:00 12/11/19 08:56 Norvasc PO 5 mg DAILY ELICIA Administration Aspirin 81 mg 12/10/19 09:00 12/11/19 08:56 Ecotrin PO 81 mg DAILY ELICIA Administration Chlorthalidone 25 mg 12/10/19 09:00 12/11/19 08:56 Hygroton PO 25 mg DAILY ELICIA Administration Gabapentin 100 mg 12/09/19 18:26 12/11/19 03:21 Neurontin PO 100 mg TID PRN Administration Pain Haloperidol Lactate 1 mg 12/09/19 09:03 12/09/19 10:17 Haldol IM 1 mg Q4H PRN Administration Agitation Labetalol HCl 10 mg 12/09/19 10:44 12/09/19 23:40 Normodyne SLOW IVP 10 mg Q4H PRN Administration SBP Greater Than 180 Sodium Chloride 10 ml 12/09/19 09:00 12/11/19 08:57 Flush - Normal Saline IVF 10 ml Q12HR ELICIA Administration - Exam General Appearance: NAD, awake alert Neck: no JVD Heart: no murmur, no gallops, no rubs Heart - other findings: tachycardic, regular rhythm Respiratory: no wheezes, no ronchi Respiratory - other findings: right lower field inspiratory rales Gastrointestinal: soft, non-tender, non-distended, normal bowel sounds Gastrointestinal - other findings: pain pump incision c/d/i Extremities: no edema Psychiatric: normal affect, normal behavior, oriented to person, oriented to place. negative: oriented to time Hosp A/P - Plan #hypertensive emergency (resolved) #demand ischemia continue losartan chlorthalidone and amlodipine echo c/w hyperdynamic function cardiology onobard #low grade fever (resolved) #aspiration pneumonitis -repeat CXR no consolidation #UGIB -no additional vomiting; HgB stable -GI onboard; no intervention at this time -continue pantoprazole #agitation (resolved) #confusion (resolved) hypertensive encephalopathy vs infectious etiology vs medication induced (opioids, lorazepam) vs ACS continue low dose haldol PRN; Full code Dispo: transfer to telemetry Patient adamant about discharge. Consulted CM to coordinate next site of visit with patient and family. Preferably rehab
[2019-12-11] MEDS: Potassium Chloride 20 MEQ in Premix Bag 1 BAG IVPB SCH (10:13)
[2019-12-11] MEDS: Losartan 25 MG TAB PO SCH (12:13)
[2019-12-11] MEDS: Potassium Chloride 20 MEQ TAB PO SCH ×2 (12:14→15:32)
[2019-12-11 20:00] LABS: Potassium 3.6 mmol/L (3.5-5.1)
[2019-12-12] MEDS ORDERED: HYDROcodone/Acetaminophen 10/325 mg Tablet ONE (04:20)
[2019-12-12] MEDS ORDERED: Gabapentin 100 MG CAP ONE (04:20)
[2019-12-12 07:10] LABS: Anion Gap 19 mmol/L (10-20); BUN (Urea Nitrogen) 24 mg/dL (9.8-20.1); Calc. Creatinine Clearance 73 mL/min (70-130); Calcium 9.6 mg/dL (7.8-10.44); Carbon Dioxide 18 mmol/L (23-31); Chloride 101 mmol/L (98-107); Estimated GFR-MDRD 53; Glucose 102 mg/dL (83-110); Magnesium 2.1 mg/dL (1.6-2.6); Potassium 3.3 mmol/L (3.5-5.1); Sodium 135 mmol/L (136-145)
[2019-12-12] MEDS ORDERED: Amlodipine 5 MG TAB ONE (08:08)
[2019-12-12] MEDS ORDERED: Aspirin 81 mg Enteric Coated Tablet ONE (08:08)
[2019-12-12] MEDS: Losartan 25 MG TAB PO SCH ×2 (08:08→09:14)
[2019-12-12] MEDS: Amlodipine 5 MG TAB PO SCH ×2 (08:08→09:13)
[2019-12-12] MEDS ORDERED: Chlorthalidone 25 MG TAB ONE (08:08)
[2019-12-12] MEDS: Chlorthalidone 25 MG TAB PO SCH ×2 (08:08→09:13)
[2019-12-12] MEDS: Aspirin 81 mg Enteric Coated Tablet PO SCH ×2 (08:08→09:13)
[2019-12-12] MEDS ORDERED: Losartan 25 MG TAB ONE (08:08)
[2019-12-12] MEDS ORDERED: Potassium Chloride 20 MEQ TAB PO SCH (09:30)
[2019-12-12 14:30] VITALS: BP 133/78; TEMP 98
--- NOTE | 2019-12-12 23:58 | DIS ---
DATE OF ADMISSION: 12/09/2019 DATE OF DISCHARGE: 12/12/2019 HOSPITAL COURSE: Ms. Ta is a 79-year-old female with a medical history of chronic postlaminectomy pain and hypertension, who presented with drowsiness. She was diagnosed with demand ischemia due to hypertensive emergency, upper GI bleed, and acute encephalopathy due to polypharmacy as well as hypertensive emergency. After treatment of hypertensive emergency with IV antihypertensives and discontinuation of her polypharmacy, the patient's encephalopathy resolved promptly. Cardiology was consulted and deemed troponinemia to be due to demand ischemia in the context of grossly elevated hypertension, grossly elevated blood pressure. On presentation, the patient had multiple episodes of coffee-grounds emesis. GI was consulted. IV PPIs were started and the patient's vomiting resolved after resolution of encephalopathy. Hemoglobin remained stable. It was attempted to place the patient in a jail facility or at least inpatient rehab, however, the patient adamantly refused. She was discharged home with home health. The patient has outpatient physical therapy set up for her. PHYSICAL EXAMINATION: VITAL SIGNS: Blood pressure 133/78, pulse 96, respiratory rate 16, oxygen saturation 96% on room air, and temperature 98 Fahrenheit. GENERAL: Sitting comfortably, awake and alert. Morbidly obese. HEENT: Mild right proptosis. CARDIAC: Regular rate and rhythm. No murmurs, gallops, or rubs. LUNGS: Clear to auscultation bilaterally. No wheezing, rales, or rhonchi. GI: Soft, nontender, and nondistended. Normal bowel sounds. Pain pump incision CDI (pain pump was replaced within days prior to presentation). EXTREMITIES: No edema. PSYCHIATRIC: Proper mood and affect. Alert and oriented x3. MEDICATION LIST: New medications; 1. Chlorthalidone 25 mg p.o. daily. 2. Losartan 100 mg p.o. daily. Discontinued medications; 1. Hydrochlorothiazide and Lorazepam (due to altered mentation on presentation). Continued medications; 1. Amlodipine. 2. Gabapentin. 3. [place] p.r.n. 4. Aspirin. 5. Meclizine p.r.n. 6. Pantoprazole was changed from p.r.n. to scheduled. Job ID: [id number]
--- NOTE | 2019-12-13 04:51 | PQF ---
CLINICAL DOCUMENTATION CLARIFICATION FORM: Dear : Blayne Sotelo Date / Time: 12/13/19 0450 Please exercise your independent, professional judgment in responding to the clarification form. Clinical indicators are provided on the bottom of this form for your review Please check appropriate box(es) to clarify if the following diagnosis has been ruled in our ruled out: [id number] Myocardial infarction [ ] Ruled in diagnosis [ ] Continue to treat [ ] Resolved [ x ] Ruled out diagnosis [ ] Improving [ ] Cannot rule out diagnosis [ x] Other diagnosis _demand ishcemia [ ] Unable to determine Physician Signature: Date/Time: For continuity of documentation, please document condition throughout progress notes and discharge summary. Thank You. To be completed by CDI/Coding staff for physician review: Present Clinical Indicators - Signs / Symptoms / Labs Results and Location in Medical Record [X] CK-MB 11.4, Troponin I 0.251, 0.695, 1.027 Laboratory 12/08 [X] BP176/77, Pulse 85, Resp 22, Temp 100.5 Vital signs 12/08 [X] Demand ischemia PN p1 12/08 Dr Sotelo [X] Agitation, confusion PN p1 12/08 Dr Sotelo [X] Non-ST Elevation myocardial infarction, likely demand ischemia PN p1 12/09 Dr Lindsay [X] Demand ischemia due to HTN emergency DS p1 12/11 Dr Sotelo [X] EKG: ST segment normal. T waves normal ED Notes 12/08 Present Risk Factors Results and Location in Medical Record [X] 79 year-old Female H&P p1 12/08 Dr Norris [X] HTN emergency PN p1 12/08 Dr Sotelo Present Treatments Results and Location in Medical Record [X] Aspirin 300 mg oral MAR 12/08 [X] IV Apresoline 20 mg MAR 12/08 [X] Norvasc 5 mg oral MAR 12/09 [X] Hygroton 25 mg MAR 12/09 [X] Cardiology consult Consult Lexi Manzanares 12/08 [X] TTE Cardiac procedure 12/09 Dr Lindsay [X] EKG ED Notes 12/08 [employer] Signature: Jennifer Valdivia Phone #: ext [phone] Date/Time: 12/13/2019 0450 This is a permanent part of the Medical Record [facility]
== END 2019-12-12 17:25 | disposition home or self-care (01) | DRG 304 ==
LOC: ERS 01:10 → ERHOLD 03:39 → IMCU/EMU 08:41 → OBSVTOIN 11:33 → 2NO 12-11 15:28
PROVIDERS: ADMIT Internal Medicine; ATTEND Internal Medicine
DX: I16.1 Hypertensive emergency (principal); G92 Toxic encephalopathy; K92.2 Gastrointestinal hemorrhage, unspecified; I24.8 Other forms of acute ischemic heart disease; T40.2X5A Adverse effect of other opioids, initial encounter; Z20.828 Contact with and (suspected) exposure to other viral communicable diseases; Z96.659 Presence of unspecified artificial knee joint; Z96.649 Presence of unspecified artificial hip joint; T42.4X5A Adverse effect of benzodiazepines, initial encounter; R40.2362 Coma scale, best motor response, obeys commands, at arrival to emergency department; R40.2132 Coma scale, eyes open, to sound, at arrival to emergency department; R40.2242 Coma scale, best verbal response, confused conversation, at arrival to emergency department; E87.6 Hypokalemia; Z88.0 Allergy status to penicillin; Z78.1 Physical restraint status; Z79.82 Long term (current) use of aspirin; Z79.899 Other long term (current) drug therapy
CPT/HCPCS: 36415; 36416; 70450; 71045; 74177; 80048; 80053; 81003; 81015; 82553; 83605; 83735; 84145; 84484; 85025; 87040; 87635; 93005; 93010; 93306; 96372; 96375; 96376; C1772; C9113; G0378; J0360; J0690; J1100; J1630; J2060; J2250; J2405; J2550; J2704; J2765; J3010; J3480; J7030; J7050; Q9967; S0020; U0003

== ENCOUNTER 2020-08-05 09:31 | Day surgery (SDC) | payer MEDICARE ==
[2020-08-04 15:41] VITALS: BMI 28.5
[2020-08-05 11:54] LABS: #Basophils 0.1 thou/uL (0.0-0.2); #Eosinphils 0.1 thou/uL (0.0-0.7); #Lymphocytes 2.9 thou/uL (1.20-3.40); #Monocytes 0.4 thou/uL (0.11-0.59); %Basophils 1.5 % (0.0-1.0); %Eosinophils 1.7 % (0.0-10.0); %Lymphocytes 44.4 % (21.0-51.0); %Monocytes 6.2 % (0.0-10.0); %Neutrophils 46.3 % (42.0-75.0); Hemoglobin 10.3 g/dL (12.0-16.0); Mean Corpuscular HGB CONC 34.2 g/dL (32.0-36.0); Mean Corpuscular Hemoglobin 30.5 pg (27.0-31.0); Mean Corpuscular Volume 89.1 fL (78.0-98.0); Mean Platelet Volume 8.7 fL (7.4-10.4); Platelet Count 189 thou/uL (130-400); RBC Distribution Width 11.8 % (11.5-14.5); Red Blood Cell (RBC) Count 3.38 mill/uL (4.20-5.40); White Blood Cell (WBC) Count 6.5 thou/uL (4.8-10.8)
[2020-08-05 12:17] LABS: ALT (SGPT) Less than 7 U/L (8-55); AST (SGOT) 14 U/L (5-34); Alkaline Phosphatase 59 U/L (40-110); Anion Gap 13 mmol/L (10-20); BUN (Urea Nitrogen) 27 mg/dL (9.8-20.1); Bilirubin, Total 0.5 mg/dL (0.2-1.2); Calc. Creatinine Clearance 19 mL/min (70-130); Calcium 9.6 mg/dL (7.8-10.44); Carbon Dioxide 22 mmol/L (23-31); Chloride 102 mmol/L (98-107); Globulin 2.8 g/dL (2.4-3.5); Glucose 91 mg/dL (83-110); Potassium 3.3 mmol/L (3.5-5.1); Protein, Total 6.8 g/dL (5.8-8.1); Sodium 134 mmol/L (136-145)
[2020-08-05] MEDS ORDERED: Bupivacaine PF 0.5% 30 ML VIAL ONE (12:57)
[2020-08-05] MEDS ORDERED: Lidocaine 1% w/Epinephrine 1:100K 20 ML VIAL ONE (12:57)
[2020-08-05] MEDS ORDERED: Fentanyl 100 MCG/2 ML VIAL ONE (13:00)
[2020-08-05] MEDS ORDERED: PROPOFOL 200 MG/20 ML VIAL ONE (13:45)
[2020-08-05] MEDS ORDERED: Lidocaine 1% PF 5 ML VIAL ONE (13:45)
[2020-08-05] MEDS ORDERED: Ondansetron PF 4 MG/2 ML Vial ONE (13:45)
[2020-08-05] MEDS ORDERED: Dexamethasone 20 MG/5 ML VIAL ONE (13:45)
== END 2020-08-05 15:29 | disposition home or self-care (01) ==
LOC: SDC 09:31
PROVIDERS: ATTEND Surgery
PROC: 0JPT0VZ Removal of Infusion Pump from Trunk Subcutaneous Tissue and Fascia, Open Approach (ICD-10-PCS; principal; 2020-08-05)
DX: T85.695A Other mechanical complication of other nervous system device, implant or graft, initial encounter (principal); I25.10 Atherosclerotic heart disease of native coronary artery without angina pectoris; G89.29 Other chronic pain; R51.9 Headache, unspecified; M48.02 Spinal stenosis, cervical region; Z79.82 Long term (current) use of aspirin; Z79.899 Other long term (current) drug therapy; Z88.0 Allergy status to penicillin
CPT/HCPCS: 80053; 85025; 93005; 93010; J0690; J1100; J2405; J2704; J3010; S0020

== ENCOUNTER 2021-09-03 11:03 | Outpatient (CLI) | payer MEDICARE | END 2021-09-03 11:04 | disposition home or self-care (01) | LOC: MRI 11:03 | PROVIDERS: ATTEND Anesthesiology Pain Medicine | DX: Z47.89 Encounter for other orthopedic aftercare (principal); Z98.890 Other specified postprocedural states | CPT/HCPCS: 74018 ==

== ENCOUNTER 2022-03-10 11:43 | Outpatient (CLI) | payer MEDICARE | END 2022-03-10 11:44 | disposition home or self-care (01) | LOC: RAD 11:43 | PROVIDERS: ATTEND Nurse Practitioner Family | DX: M25.522 Pain in left elbow (principal); M79.631 Pain in right forearm; M19.022 Primary osteoarthritis, left elbow; M25.422 Effusion, left elbow; M19.021 Primary osteoarthritis, right elbow; M18.11 Unilateral primary osteoarthritis of first carpometacarpal joint, right hand; M11.221 Other chondrocalcinosis, right elbow; M89.8X3 Other specified disorders of bone, forearm ==

== ENCOUNTER → 2023-03-09 | Outpatient (CLI) | payer MEDICARE | LOC: PET 11:00 | PROVIDERS: ATTEND Internal Medicine Hematology & Oncology | DX: C43.39 Malignant melanoma of other parts of face (principal); K11.8 Other diseases of salivary glands | CPT/HCPCS: 78816; A9552 ==

== ENCOUNTER → 2023-04-07 | Day surgery (SDC) | payer MEDICARE ==
[~2023-04-07] MED LIST: Lidocaine 1% PF 5 ML VIAL ONE
== END ==
LOC: ULT 12:12
PROVIDERS: ATTEND Internal Medicine Hematology & Oncology
PROC: 0CB93ZX Excision of Left Parotid Gland, Percutaneous Approach, Diagnostic (ICD-10-PCS; principal; 2023-04-07)
DX: C43.39 Malignant melanoma of other parts of face (principal); D37.030 Neoplasm of uncertain behavior of the parotid salivary glands; I25.2 Old myocardial infarction; Z98.890 Other specified postprocedural states
CPT/HCPCS: 10005; 88172; 88173; 88177; 88305

== ENCOUNTER 2023-04-19 15:42 | Inpatient (IN) | payer MEDICARE ==
[~2023-04-19 15:42] MED LIST changes: +Iopamidol-370 76% 500 ML MDV (1 ML CHARGE) ONE; -Lidocaine 1% PF 5 ML VIAL ONE
[2023-04-19 17:17] LABS: #Monocytes 1.3 thou/uL (0.11-0.59); #Neutrophils 8.3 thou/uL (1.40-6.50); %Basophils 0.2 % (0.0-1.0); %Eosinophils 0.2 % (0.0-10.0); %Lymphocytes 10.5 % (21.0-51.0); %Monocytes 11.8 % (0.0-10.0); %Neutrophils 76.5 % (42.0-75.0); Hematocrit 34.1 % (36.0-47.0); Hemoglobin 11.9 g/dL (12.0-16.0); Mean Corpuscular HGB CONC 34.9 g/dL (32.0-36.0); Mean Corpuscular Hemoglobin 31.8 pg (27.0-31.0); Mean Corpuscular Volume 91.2 fl (78.0-98.0); Mean Platelet Volume 11.5 fL (7.4-10.4); Platelet Count 168 10x3/uL (130-400); Red Blood Cell (RBC) Count 3.74 mill/uL (4.20-5.40); White Blood Cell (WBC) Count 10.9 10x3/uL (4.8-10.8)
[2023-04-19 17:52] LABS: ALT (SGPT) 12 U/L (8-55); AST (SGOT) 22 U/L (5-34); Albumin 3.2 g/dL (3.4-4.8); Alkaline Phosphatase 74 U/L (40-110); Anion Gap 10 mmol/L (10-20); BUN (Urea Nitrogen) 28 mg/dL (9.8-20.1); Bilirubin, Total 0.6 mg/dL (0.2-1.2); Calc. Creatinine Clearance 0 mL/min (70-130); Calcium 8.6 mg/dL (7.8-10.44); Carbon Dioxide 29 mmol/L (23-31); Chloride 102 mmol/L (98-107); Estimated GFR 74; Globulin 2.5 g/dL (2.4-3.5); Glucose 105 mg/dL (83-110); Lipase 6 U/L (8-78); Magnesium 1.4 mg/dL (1.6-2.6); Protein, Total 5.7 g/dL (5.8-8.1); Sodium 138 mmol/L (136-145)
[2023-04-19 17:55] LABS: Troponin I 0.011 ng/mL (< 0.028)
[2023-04-19] MEDS ORDERED: Acetaminophen 500 MG TAB ONE (18:50)
[2023-04-19] MEDS ORDERED: Potassium Chloride 20 MEQ TAB ONE (18:50)
[2023-04-19] MEDS ORDERED: Magnesium 2 GM/50 ML BAG (IN WATER) ONE (18:51)
[2023-04-19] MEDS ORDERED: cefTRIAXone (ROCEPHIN) 1 GM VIAL ONE (19:14)
[2023-04-19] MEDS ORDERED: Sodium Chloride 0.9% 100 ML ONE (19:14)
[2023-04-19] MEDS ORDERED: Morphine 4 MG/ML VIAL ONE (19:14)
[2023-04-19] MEDS ORDERED: Vancomycin 1 GM/200 ML (FROZEN) BAG ONE (19:15)
[2023-04-19 19:40] LABS: Bilirubin Negative (Negative); Blood, Urine Negative (Negative); CAUTI Indications for Culture Alt mental st,lethar; Clarity Clear (Clear); Glucose, Urine (Dipstick) Normal (Negative); Ketone, Urine Negative (Negative); Leukocyte Negative Leu/uL (Negative); Nitrite Negative (Negative); Protein, Urine (Dipstick) 10 mg/dL (Neg-Trace); RBC/HPF 0-3 HPF (0-3); Squamous Epithelial 0-3 HPF (0-3); Urobilinogen Normal mg/dL (Less than 2); WBC/HPF 0-3 HPF (0-3)
[2023-04-19 19:42] LABS: Bacteria/HPF 1+ HPF (None Seen); Specific Gravity, Urine 1.049 (1.002-1.036)
[2023-04-19 19:44] LABS: Urine Culture Reflex No No
[2023-04-19] MEDS ORDERED: Ondansetron ODT 4 MG TAB SL PRN (20:00)
[2023-04-19] MEDS ORDERED: Acetaminophen 325 MG TAB PO PRN ×2 (20:00→22:43)
[2023-04-19] MEDS ORDERED: Ondansetron PF 4 MG/2 ML Vial IVP PRN (20:00)
[2023-04-19] MEDS ORDERED: metroNIDAZOLE 500 MG (100 mL) BAG ONE (21:18)
[2023-04-19] MEDS ORDERED: Enoxaparin 30 MG (0.3 mL) SYRINGE SC SCH (21:30)
[2023-04-19 22:25] VITALS: BMI 20.9
[2023-04-19 22:40] LABS: Critical Call Chemistry NUR.CLH @2239
[2023-04-19] MEDS ORDERED: Acetaminophen 650 MG Suppository PR PRN (22:42)
[2023-04-19] MEDS ORDERED: Potassium Phosphate 9 MMOL in Sodium Chloride 0.9% 100 ML IVPB SCH (22:45)
[2023-04-20] MEDS ORDERED: HYDROcodone/Acetaminophen 10/325 mg Tablet PO SCH (01:00)
[2023-04-20] MEDS: metroNIDAZOLE 500 MG in Premix 1 BAG IVPB SCH ×3 (05:50→21:49)
[2023-04-20] MEDS ORDERED: Magnesium 2 GM/50 ML(in water) 2 GM in Premix 1 BAG IVPB SCH (09:00)
[2023-04-20] MEDS: Gabapentin 100 MG CAP PO SCH ×3 (09:00→19:59)
[2023-04-20] MEDS ORDERED: Docusate Calcium (SURFAK) 240 MG CAP PO PRN (09:53)
[2023-04-20 12:07] LABS: #Eosinphils 0.1 thou/uL (0.0-0.7); #Monocytes 0.8 thou/uL (0.11-0.59); #Neutrophils 6.5 thou/uL (1.40-6.50); %Basophils 0.4 % (0.0-1.0); %Lymphocytes 10.8 % (21.0-51.0); %Neutrophils 77.2 % (42.0-75.0); Hemoglobin 11.2 g/dL (12.0-16.0); Mean Corpuscular HGB CONC 33.9 g/dL (32.0-36.0); Mean Corpuscular Hemoglobin 31.6 pg (27.0-31.0); Mean Corpuscular Volume 93.2 fl (78.0-98.0); Platelet Count 138 10x3/uL (130-400); RBC Distribution Width 14.2 % (11.5-14.5); Red Blood Cell (RBC) Count 3.54 mill/uL (4.20-5.40); White Blood Cell (WBC) Count 8.4 10x3/uL (4.8-10.8)
[2023-04-20 12:37] LABS: Anion Gap 13 mmol/L (10-20); BUN (Urea Nitrogen) 18 mg/dL (9.8-20.1); Calc. Creatinine Clearance 48 mL/min (70-130); Calcium 8.6 mg/dL (7.8-10.44); Carbon Dioxide 23 mmol/L (23-31); Chloride 104 mmol/L (98-107); Estimated GFR 87; Glucose 76 mg/dL (83-110); Magnesium 1.8 mg/dL (1.6-2.6); Phosphorus 1.6 mg/dL (2.3-4.7); Potassium 3.8 mmol/L (3.5-5.1); Sodium 136 mmol/L (136-145)
[2023-04-20] MEDS: PHOS-NAK 1 PKT PACK PO SCH ×2 (16:39→19:59)
[2023-04-20] MEDS: HYDROcodone/Acetaminophen 10/325 mg Tablet PO PRN (17:27)
[2023-04-20] MEDS: cefTRIAXone\\ROCEPHIN 1 GM in Sodium Chloride 0.9% 100 ML IVPB SCH (19:49)
[2023-04-20] MEDS: Docusate 100 MG CAP PO SCH (19:59)
[2023-04-20] MEDS ORDERED: Vancomycin HCl 750 MG in Sodium Chloride 0.9% 250 ML 250 ML IVPB SCH (20:00)
[2023-04-20] MEDS: Enoxaparin 30 MG (0.3 mL) SYRINGE SC SCH ×2 (20:02→20:52)
[2023-04-21] MEDS: metroNIDAZOLE 500 MG in Premix 1 BAG IVPB SCH ×3 (05:37→21:29)
[2023-04-21 07:01] LABS: Phosphorus 1.9 mg/dL (2.3-4.7)
[2023-04-21 07:03] LABS: Anion Gap 9 mmol/L (10-20); BUN (Urea Nitrogen) 15 mg/dL (9.8-20.1); Calc. Creatinine Clearance 47 mL/min (70-130); Calcium 8.2 mg/dL (7.8-10.44); Carbon Dioxide 25 mmol/L (23-31); Chloride 103 mmol/L (98-107); Estimated GFR 86; Glucose 84 mg/dL (83-110); Magnesium 1.9 mg/dL (1.6-2.6); Potassium 3.3 mmol/L (3.5-5.1); Sodium 134 mmol/L (136-145)
[2023-04-21] MEDS ORDERED: Magnesium 2 GM/50 ML(in water) 2 GM in Premix 1 BAG IVPB SCH (08:30)
[2023-04-21] MEDS ORDERED: Potassium Chloride 20 MEQ TAB PO SCH (08:30)
[2023-04-21] MEDS: Gabapentin 100 MG CAP PO SCH ×3 (09:05→20:57)
[2023-04-21] MEDS: PHOS-NAK 1 PKT PACK PO SCH ×3 (09:05→20:58)
[2023-04-21] MEDS: Docusate 100 MG CAP PO SCH ×2 (09:05→20:57)
[2023-04-21] MEDS ORDERED: Dexamethasone 10 MG/ML VIAL SLOW IVP SCH (15:15)
[2023-04-21] MEDS: HYDROcodone/Acetaminophen 10/325 mg Tablet PO PRN (16:04)
[2023-04-21] MEDS: cefTRIAXone\\ROCEPHIN 1 GM in Sodium Chloride 0.9% 100 ML IVPB SCH (18:11)
[2023-04-22] MEDS: metroNIDAZOLE 500 MG in Premix 1 BAG IVPB SCH (05:12)
[2023-04-22] MEDS: HYDROcodone/Acetaminophen 10/325 mg Tablet PO PRN ×2 (05:41→13:27)
[2023-04-22 06:26] LABS: #Monocytes 0.1 thou/uL (0.11-0.59); #Neutrophils 2.9 thou/uL (1.40-6.50); %Lymphocytes 12.1 % (21.0-51.0); %Monocytes 3.5 % (0.0-10.0); %Neutrophils 83.8 % (42.0-75.0); Hematocrit 32.9 % (36.0-47.0); Hemoglobin 11.2 g/dL (12.0-16.0); Mean Corpuscular Volume 91.1 fl (78.0-98.0); Mean Platelet Volume 11.2 fL (7.4-10.4); Platelet Count 166 10x3/uL (130-400); RBC Distribution Width 13.9 % (11.5-14.5); Red Blood Cell (RBC) Count 3.61 mill/uL (4.20-5.40); White Blood Cell (WBC) Count 3.4 10x3/uL (4.8-10.8)
[2023-04-22 07:32] LABS: ALT (SGPT) 9 U/L (8-55); AST (SGOT) 15 U/L (5-34); Albumin 2.8 g/dL (3.4-4.8); Alkaline Phosphatase 58 U/L (40-110); Anion Gap 13 mmol/L (10-20); BUN (Urea Nitrogen) 16 mg/dL (9.8-20.1); Bilirubin, Total 0.4 mg/dL (0.2-1.2); Calc. Creatinine Clearance 47 mL/min (70-130); Calcium 8.5 mg/dL (7.8-10.44); Carbon Dioxide 22 mmol/L (23-31); Chloride 102 mmol/L (98-107); Estimated GFR 86; Glucose 128 mg/dL (83-110); Magnesium 2.1 mg/dL (1.6-2.6); Phosphorus 2.9 mg/dL (2.3-4.7); Potassium 4.1 mmol/L (3.5-5.1); Protein, Total 5.8 g/dL (5.8-8.1); Sodium 134 mmol/L (136-145)
[2023-04-22] MEDS ORDERED: Enoxaparin 40 MG (0.4 mL) SYRINGE SC SCH (09:00)
[2023-04-22] MEDS: Docusate 100 MG CAP PO SCH (09:23)
[2023-04-22] MEDS: Gabapentin 100 MG CAP PO SCH ×2 (09:23→14:50)
[2023-04-22] MEDS: PHOS-NAK 1 PKT PACK PO SCH (09:24)
[2023-04-22] MEDS ORDERED: Dexamethasone 10 MG/ML VIAL SLOW IVP SCH (12:15)
[2023-04-22 12:25] VITALS: BP 103/67; TEMP 97.9
[2023-04-22] MEDS ORDERED: Amoxicillin/Potassium Clav 875 MG TAB PO SCH ×2 (13:00→21:00)
[2023-04-22] MEDS ORDERED: Dexamethasone 4 MG TAB PO SCH (13:30)
== END 2023-04-22 15:28 | disposition home or self-care (01) | DRG 155 ==
LOC: ERS 15:42 → INTOOBSV 19:37 → MSONC 19:37 → OBSVTOIN 04-21 09:34
PROVIDERS: ADMIT Family Medicine; ATTEND Family Medicine
DX: K11.20 Sialoadenitis, unspecified (principal); E46 Unspecified protein-calorie malnutrition; F41.9 Anxiety disorder, unspecified; E83.39 Other disorders of phosphorus metabolism; E87.6 Hypokalemia; E83.42 Hypomagnesemia; R62.7 Adult failure to thrive; D64.9 Anemia, unspecified; Z66 Do not resuscitate; I25.10 Atherosclerotic heart disease of native coronary artery without angina pectoris; Z68.21 Body mass index [BMI] 21.0-21.9, adult; I25.2 Old myocardial infarction; Z86.73 Personal history of transient ischemic attack (TIA), and cerebral infarction without residual deficits; Z98.890 Other specified postprocedural states; Z88.0 Allergy status to penicillin; Z79.899 Other long term (current) drug therapy
CPT/HCPCS: 36415; 70450; 70487; 71045; 80048; 80053; 81001; 83690; 83735; 84100; 84443; 84484; 85025; 87077; 87081; 87086; 93005; 96365; 96366; 96367; 96368; 96372; 96375; 96376; G0378; J0696; J1100; J1650; J2270; J3370; J3370-JW; J3475; J3490; J7050; J8540; Q9967